=== PATIENT | female | born 1945 | race Caucasian/White ===

== ENCOUNTER 2018-04-23 13:17 | Outpatient (CLI) | payer MEDICARE, SELFPAY ==
[2018-04-23 14:34] LABS: Anion Gap 11.1 mmol/L (3-11); BUN 34 mg/dL (7-18); CO2 23.9 mmol/L (21.0-32.0); CREATININE 2.12 mg/dL (0.55-1.02); Calcium 8.9 mg/dL (8.5-10.1); Chloride 99 mmol/L (98-107); Estimated GFR 23.03 (mL/min/1.73m2); Glucose 95 mg/dL (70-100); Potassium 4.3 mmol/L (3.5-5.1); Sodium 134 mmol/L (136-145)
== END 2018-04-23 13:37 ==
PROVIDERS: PCP Family Medicine; Visit Provider Obstetrics & Gynecology Gynecologic Oncology
DX: E87.6 Hypokalemia (principal)
CPT/HCPCS: 80048